=== PATIENT | female | born 1985 | race Caucasian/White ===

== ENCOUNTER 2024-05-27 17:34 | Inpatient (IN) | payer SELFPAY ==
[2024-05-27 17:42] VITALS: BP 202/106; PULSE 78; RESP 17; TEMP 36.7; O2SAT 95; BMI 34.4
[2024-05-27 18:07] LABS: Basophils # 0.1 10^3/uL (0.0-0.1); Basophils % 0.5 %; Eosinophils # 0.2 10^3/uL (0.0-0.8); Eosinophils % 1.1 %; Hematocrit 44.3 % (36-47); Mean Corpuscular HGB Conc 33.4 g/dL (30-55); Mean Corpuscular Hemoglobin 31.7 pg (27-33); Mean Corpuscular Volume 94.9 fl (85-98); Mean Platelet Volume 10.3 fL (7.4-10.4); Monocytes # 0.7 10^3/uL (0.2-0.9); Monocytes % 4.9 %; Neutrophils # 10.78 10^3/uL (1.8-7.7); Neutrophils % 72.9 %; Nucleated Red Blood Cells % 0 %; Platelet Count 317 10^3/cmm (157-399); Red Blood Count 4.67 10^6/uL (3.85-5.65); Red Cell Distribution Width 14.1 % (12.1-15.1)
[2024-05-27] MEDS: orphenadrine 30 mg/mL Inj 2 mL 60 MG IVP (18:09)
[2024-05-27] MEDS: HYDROmorphone 0.5 MG/0.5 ML INJ IVP (18:09)
[2024-05-27 18:18] LABS: INR 0.93 (0.8-1.2)
[2024-05-27 18:19] LABS: Partial Thromboplastin Time 30.8 SECONDS (23.9-36.7)
[2024-05-27 18:21] LABS: HCG, Serum Qual Negative (Negative)
[2024-05-27 18:23] LABS: Lactic Sepsis W/Reflex 1.6 mmol/L (0.5-2.2)
[2024-05-27 18:29] LABS: Alanine Aminotransferase 14 U/L (0-33); Alkaline Phosphatase 94 U/L (35-105); Anion Gap 20.3 (5-19); Aspartate Amino Transferase 26 U/L (0-32); Blood Urea Nitrogen 12 mg/dL (6-20); Carbon Dioxide 22 mmol/L (22-29); Chloride 101 mmol/L (98-107); Globulin 3.5 g/dL (1.3-4.6); Glucose 130 mg/dL (65-115); Osmolality Calculated 290 mOsm/kg (285-295); Potassium 4.3 mmol/L (3.5-5.1); Sodium 139 mmol/L (136-145); Total Bilirubin 0.6 mg/dL (0.15-1.2); Total Protein 8.5 g/dL (6.6-8.7)
[2024-05-27 18:30] LABS: Creatine Phosphokinase 501 U/L (26-192)
[2024-05-27 19:12] LABS: Thyroid Stimulating Hormone 63.45 uIU/mL (0.27-4.20)
[2024-05-27 19:47] VITALS: BP 152/90; PULSE 59; RESP 16; O2SAT 97
[2024-05-27] MEDS: midazolam 1 mg/mL INJ 2 mL 2 MG IVP (19:48)
--- NOTE | 2024-05-27 19:53 | PC.NURSE ---
PROVIDER MADE AWARE OF HR OF 60 BEFORE VERSED ADMIN, PROVIDER GAVE VERBAL ORDER TO GIVE MEDICATION.
--- NOTE | 2024-05-27 20:38 | ED_ITS ---
Documented by User: Ranulfo Oneal MD 05/27/24 23:01 HPI - General Adult 2 General: Chief complaint: General Medical Stated complaint: pain; MS Time Seen by Provider: 05/27/24 17:40 Source: patient and EMS Mode of arrival: EMS Limitations: no limitations History of Present Illness: 38-year-old female comes in complaining of pain and spasticity all over. Has a history of MS has been off her meds since January. Patient was not taken off of them just has run out. She is reporting moved and is no longer near her previous neurologist. Has not reestablished with neurology. Patient does have extensive extensive amounts of track turner on bilateral arms. Attempted to ask about this and patient just referred to them as scars. Patient reports that he cramping is all over she has had this happen before but never to this severity. Related Data Allergies Allergy/AdvReac Type Severity Reaction Status Date / Time No Known Allergies Allergy Verified 05/28/24 01:10 Review of Systems 2 General: Reports: 10 or more systems reviewed and unremarkable except in HPI and below PFSH ED 2 PFS: Medical History (Updated 05/28/24 @ 02:12 by Vadim Cooper DO) Hypothyroidism Opiate abuse, episodic Methamphetamine abuse in remission Multiple sclerosis Physical Exam 2 Narrative: EXAM NARRATIVE: Patient appears to be in moderate distress secondary to pain and is having cramping all of her extremities with tightness in the muscles of the legs and arms that is palpable and tender. Const: COMMON NORMALS: average body habitus, patient oriented x3, healthy appearing, alert and well nourished GENERAL APPEARANCE: well developed HENMT: COMMON NORMALS: normocephalic, atraumatic, external ears normal and moist oral mucous membranes HEAD & SCALP: normocephalic and atraumatic E XTERNAL EAR: Yes external ears normal Eye: COMMON NORMALS: Equal, round and reactive pupils present, EOMs intact bilaterally and conjunctivae normal CONJUNCTIVA: Yes conjunctivae normal P UPIL: Yes Equal, round and reactive pupils present Neck/C-Spine: COMMON NORMALS: full ROM, no lymphadenopathy and supple Chest: CHEST: Yes Symmetrical chest wall rise and No Surgical scars present (Chest) Resp: COMMON NORMALS: normal respiratory effort, No retractions, No use of accessory muscles and clear to auscultation bilaterally AUSCULTATION: clear to auscultation bilaterally Cardio: COMMON NORMALS: regular rate, regular rhythm, S1 normal heart sound present, S2 normal heart sound present, No gallops present (Cardio), No clicks present (Cardio), No murmurs present (Cardio) and No rub (Cardio) RATE: r egular rate RHYTHM: regular rhythm HEART SOUNDS: S1 normal heart sound present, S2 normal heart sound present and no murmurs PERIPHERAL PULSES: o ther (Radial pulses 2+ and symmetric) GI: COMMON NORMALS: Soft to palpation, non-tender and no masses INSPECTION: No abdominal distension PALPATION: Yes Soft to palpation, No Guarding due to palpation present (GI) and No Rebound tenderness present : COMMON NORMALS: Yes no CVA tenderness BLADDER/KIDNEY EXAM: Yes no CVA tenderness Back/Pelvis: COMMON NORMALS: no CVA tenderness Extremity: COMMON NORMALS: capillary refill normal and no clubbing, cyanosis or edema Neuro: COMMON NORMALS: patient oriented x3 SENSORIUM/ORIENTATION: Yes alert Skin: COMMON NORMALS: no rashes or lesions noted, no wounds, turgor normal and no jaundice GENERAL SKIN EXAM: no rashes or lesions noted and turgor normal Course 2 Vital Signs: Vital signs: Vital Signs Temperature 98.0 F 05/27/24 17:42 Pulse Rate 55 L 05/28/24 01:18 Respiratory Rate 16 05/28/24 01:18 Blood Pressure 149/98 05/28/24 01:18 Pulse Oximetry 94 05/28/24 01:18 Oxygen Delivery Me thod Room Air 05/28/24 00:37 MDM - General Adult Medical Decision Making Patient barely having an MS flare with all over muscle cramps. Now resolved muscle soreness. She has a CPK of 501. A TSH of 63 she reports she has not had any of her MS medications since January secondary to moving. Patient has not established with a local neurologist. Have received some control of pain and spasms with Versed and Dilaudid but patient still has visible fasciculations happening. Due to shift change while paging out for outside hospital transfer. Will handoff to Dr. Cooper. Medical Records I reviewed the patient's medical records. Lab Data I reviewed the patient's lab results. 05/27/24 18:01 05/27/24 18:01 Laboratory Results WBC 14.80 10^3/uL (3.29-11.43) H 05/27/24 18: RBC 4.67 10^6/uL (3.85-5.65) 05/27/24 18: Hgb 14.80 g/dL (11.27-16.99) 05/27/24 18: Hct 44.3 % (36-47) 05/27/24 18: MCV 94.9 fl (85-98) 05/27/24 18: MCH 31.7 pg (27-33) 05/27/24 18: MCHC 33.4 g/dL (30-55) 05/27/24 18: RDW 14.1 % (12.1-15.1) 05/27/24: Plt Count 317 10^3/cmm (157-399) 05/27/24 18: MPV 10.3 fL (7.4-10.4) 05/27/24 18: Neut % (Auto) 72.9 % 05/27/24 18: Lymph % (Auto) 20.0 % 05/27/24 18: [place] % (Auto) 4.9 % 05/27/24 18: Eos % (Auto) 1.1 % 05/27/24 18: Baso % (Auto) 0.5 % 05/27/24 18: Neut # (Auto) 10.78 10^3/uL (1.8-7.7) H 05/27/24 18: Lymph # (Auto) 3.0 10^3/uL (0.8-4.8) 05/27/24 18: [place] # (Auto) 0.7 10^3/uL (0.2-0.9) 05/27/24 18: Eos # (Auto) 0.2 10^3/uL (0.0-0.8) 05/27/24 18: Baso # (Auto) 0.1 10^3/uL (0.0-0.1) 05/27/24 18: Nucleated RBC % (auto) 0 % 05/27/24 18: Nucleated RBCs # 0.0 /100WBC 05/27/24 18: PT 13.20 SECONDS (12.1-14.9) 05/27/24 18: INR 0.93 (0.8-1.2) 05/27/24 18: APTT 30.8 SECONDS (23.9-36.7) 05/27/24 18: Sodium 139 mmol/L (136-145) 05/27/24 18: Potassium 4.3 mmol/L (3.5-5.1) 05/27/24 18: Chloride 101 mmol/L (98-107) 05/27/24 18: Carbon Dioxide 22 mmol/L (22-29) 05/27/24 18: Anion Gap 20.3 (5-19) H 05/27/24 18: BUN 12 mg/dL (6-20) 05/27/24 18: Creatinine 1.2 mg/dL (0.5-0.9) H 05/27/24 18: GFR Calculation 50.0 mL/min (90-130) L 05/27/24: Glucose 130 mg/dL (65-115) H 05/27/24 18: Calculated Osmolality 290 mOsm/kg (285-295) 05/27/24 18: Lactic Acid 1.6 mmol/L (0.5-2.2) 05/27/24 18: Calcium 10.0 mg/dL (8.5-10.5) 05/27/24 18: Total Bilirubin 0.6 mg/dL (0.15-1.2) 05/27/24 18: AST 26 U/L (0-32) 05/27/24 18: ALT 14 U/L (0-33) 05/27/24 18: Alkaline Phosphatase 94 U/L (35-105) 05/27/24 18: Creatine Kinase 501 U/L (26-192) H* 05/27/24 18: Total Protein 8.5 g/dL (6.6-8.7) 05/27/24 18: Albumin 5.0 g/dL (3.5-5.2) 05/27/24 18: Globulin 3.5 g/dL (1.3-4.6) 05/27/24 18: TSH 63.45 uIU/mL (0.27-4.20) H 05/27/24 18:01 HCG, Qual Negative (Negative) 05/27/24 21:13 Urine Color Yellow (Yellow) 05/27/24 21:13 Urine Appearance Slightly cloudy (CLEAR) 05/27/24 21:13 Urine pH 5 (5-7) 05/27/24 21:13 Ur Specific [place] 1.030 (1.005-1.030) 05/27/24 21:13 Urine Protein 1+ (Negative) A 05/27/24 21:13 Urine Glucose (UA) Norm (Normal) 05/27/24 21:13 Urine Ketones 1+ (Negative) H 05/27/24 21:13 Urine Blood 3+ (Negative) A 05/27/24 21: Urine Nitrate Positive (Negative) A 05/27/24 21: Urine Bilirubin 1+ (Negative) H 05/27/24 21:13 Urine Urobilinogen Norm mg/dL (Negative) 05/27/24 21:13 Ur Leukocyte Esterase Negative (Negative) 05/27/24 21:13 Urine RBC 3-5 /hpf (0-2) 05/27/24 21:13 Urine WBC 6-10 /hpf (0-5) 05/27/24 21:13 Ur Squamous Epith Cells 6-10 /hpf (0-5) 05/27/24 21:13 Amorphous Sediment Not Reportable 05/27/24 21:13 Urine Bacteria 2+ /hpf (NONE) H 05/27/24 21:13 Hyaline Casts 39.70 /lpf 05/27/24 21:13 Urine Opiates Screen Positive ng/mL (Negative) H 05/27/24 21:13 Ur Barbiturates Screen Negative ng/mL (Negative) 05/27/24 21:13 Ur Phencyclidine Scrn Negative ng/mL (Negative) 05/27/24 21:13 Ur Amphetamines Screen Negative ng/mL (Negative) 05/27/24 21:13 U Benzodiazepines Scrn Negative ng/mL (Negative) 05/27/24 21:13 Urine Cocaine Screen Negative ng/mL (Negative) 05/27/24 21:13 U Marijuana (THC) Screen Positive ng/mL (Negative) H 05/27/24 21:13 No radiology studies performed this visit Discharge Plan Discharge Patient Disposition: Admitted As Inpatient Admit Provider: Kenneth Olson Clinical Impression: Multiple sclerosis, Myositis Condition: Stable Coding Level of Care Code ED Retail Advertising Sales Manager for Chg Fwd Documented by User: Vadim Cooper DO 05/28/24 02:12 HPI - General Adult 2 General: Chief complaint: General Medical Stated complaint: pain; MS Time Seen by Provider: 05/27/24 17:40 Related Data Allergies Allergy/AdvReac Type Severity Reaction Status Date / Time No Known Allergies Allergy Verified 05/28/24 01:10 [facility] ED 2 PFSH: Medical History (Updated 05/28/24 @ 02:12 by Vadim Cooper DO) Hypothyroidism Opiate abuse, episodic Methamphetamine abuse in remission Multiple sclerosis Course 2 Vital Signs: Vital signs: Vital Signs Temperature 98.0 F 05/27/24 17:42 Pulse Rate 55 L 05/28/24 01:18 Respiratory Rate 16 05/28/24 01:18 Blood Pressure 149/98 05/28/24 01:18 Pulse Oximetry 94 05/28/24 01:18 Oxygen Delivery Me thod Room Air 05/28/24 00:37 MDM - General Adult Medical Decision Making Patient having an MS flare with all over muscle cramps. Now resolved muscle soreness. She has a CPK of 501. A TSH of 63 she reports she has not had any of her MS medications since January secondary to moving. Patient has not established with a local neurologist. Have received some control of pain and spasms with Versed and Dilaudid but patient still has visible fasciculations happening. Due to shift change while paging out for neurology consult. Will handoff to Dr. Cooper. Accepted patient at shift change from previous ER physician. I spoke with Dr. Leyva, neurology at [facility] in [facility]. His recommendations are pulsed dose of Solu-Medrol, 1 g daily for 3 days. MRI of brain and cervical, thoracic, and lumbar spine with and without contrast on Wednesday if possible. PT OT consult. Sliding scale insulin to control sugar if needed, and Protonix while on steroids. Spoke with hospitalist, who agrees to admission. Lab Data 05/27/24 18:01 05/27/24 18:01 Laboratory Results WBC 14.80 10^3/uL (3.29-11.43) H 05/27/24 18: RBC 4.67 10^6/uL (3.85-5.65) 05/27/24 18: Hgb 14.80 g/dL (11.27-16.99) 05/27/24 18: Hct 44.3 % (36-47) 05/27/24 18: MCV 94.9 fl (85-98) 05/27/24 18: MCH 31.7 pg (27-33) 05/27/24 18: MCHC 33.4 g/dL (30-55) 05/27/24 18: RDW 14.1 % (12.1-15.1) 05/27/24 18: Plt Count 317 10^3/cmm (157-399) 05/27/24 18: MPV 10.3 fL (7.4-10.4) 05/27/24 18: Neut % (Auto) 72.9 % 05/27/24 18: Lymph % (Auto) 20.0 % 05/27/24 18: [place] % (Auto) 4.9 % 05/27/24 18: Eos % (Auto) 1.1 % 05/27/24 18: Baso % (Auto) 0.5 % 05/27/24 18: Neut # (Auto) 10.78 10^3/uL (1.8-7.7) H 05/27/24 18: Lymph # (Auto) 3.0 10^3/uL (0.8-4.8) 05/27/24 18: [place] # (Auto) 0.7 10^3/uL (0.2-0.9) 05/27/24 18: Eos # (Auto) 0.2 10^3/uL (0.0-0.8) 05/27/24 18: Baso # (Auto) 0.1 10^3/uL (0.0-0.1) 05/27/24 18: Nucleated RBC % (auto) 0 % 05/27/24 18: Nucleated RBCs # 0.0 /100WBC 05/27/24 18: PT 13.20 SECONDS (12.1-14.9) 05/27/24 18: INR 0.93 (0.8-1.2) 05/27/24 18: APTT 30.8 SECONDS (23.9-36.7) 05/27/24 18: Sodium 139 mmol/L (136-145) 05/27/24 18: Potassium 4.3 mmol/L (3.5-5.1) 05/27/24 18: Chloride 101 mmol/L (98-107) 05/27/24 18: Carbon Dioxide 22 mmol/L (22-29) 05/27/24 18: Anion Gap 20.3 (5-19) H 05/27/24 18: BUN 12 mg/dL (6-20) 05/27/24 18: Creatinine 1.2 mg/dL (0.5-0.9) H 05/27/24 18: GFR Calculation 50.0 mL/min (90-130) L 05/27/24 18: Glucose 130 mg/dL (65-115) H 05/27/24 18: Calculated Osmolality 290 mOsm/kg (285-295) 05/27/24 18: Lactic Acid 1.6 mmol/L (0.5-2.2) 05/27/24 18: Calcium 10.0 mg/dL (8.5-10.5) 05/27/24 18: Total Bilirubin 0.6 mg/dL (0.15-1.2) 05/27/24 18: AST 26 U/L (0-32) 05/27/24 18: ALT 14 U/L (0-33) 05/27/24 18: Alkaline Phosphatase 94 U/L (35-105) 05/27/24 18: Creatine Kinase 501 U/L (26-192) H* 05/27/24 18: Total Protein 8.5 g/dL (6.6-8.7) 05/27/24 18: Albumin 5.0 g/dL (3.5-5.2) 05/27/24 18: Globulin 3.5 g/dL (1.3-4.6) 05/27/24 18:01 TSH 63.45 uIU/mL (0.27-4.20) H 05/27/24 18:01 HCG, Qual Negative (Negative) 05/27/24 21:13 Urine Color Yellow (Yellow) 05/27/24 21:13 Urine Appearance Slightly cloudy (CLEAR) 05/27/24 21:13 Urine pH 5 (5-7) 05/27/24 21:13 Ur Specific [place] 1.030 (1.005-1.030) 05/27/24 21:13 Urine Protein 1+ (Negative) A 05/27/24 21:13 Urine Glucose (UA) Norm (Normal) 05/27/24 21:13 Urine Ketones 1+ (Negative) H 05/27/24 21: Urine Blood 3+ (Negative) A 05/27/24 21: Urine Nitrate Positive (Negative) A 05/27/24 21: Urine Bilirubin 1+ (Negative) H 05/27/24 21:13 Urine Urobilinogen Norm mg/dL (Negative) 05/27/24 21:13 Ur Leukocyte Esterase Negative (Negative) 05/27/24 21:13 Urine RBC 3-5 /hpf (0-2) 05/27/24 21:13 Urine WBC 6-10 /hpf (0-5) 05/27/24 21:13 Ur Squamous Epith Cells 6-10 /hpf (0-5) 05/27/24 21:13 Amorphous Sediment Not Reportable 05/27/24 21:13 Urine Bacteria 2+ /hpf (NONE) H 05/27/24 21:13 Hyaline Casts 39.70 /lpf 05/27/24 21:13 Urine Opiates Screen Positive ng/mL (Negative) H 05/27/24 21:13 Ur Barbiturates Screen Negative ng/mL (Negative) 05/27/24 21:13 Ur Phencyclidine Scrn Negative ng/mL (Negative) 05/27/24 21:13 Ur Amphetamines Screen Negative ng/mL (Negative) 05/27/24 21:13 U Benzodiazepines Scrn Negative ng/mL (Negative) 05/27/24 21:13 Urine Cocaine Screen Negative ng/mL (Negative) 05/27/24 21:13 U Marijuana (THC) Screen Positive ng/mL (Negative) H 05/27/24 21:13 Discharge Plan Discharge Patient Disposition: Admitted As Inpatient Admit Provider: Kenneth Olson Clinical Impression: Multiple sclerosis, Myositis Condition: Stable Coding Level of Care Code ED Retail Advertising Sales Manager for Saul Ward
[2024-05-27 20:52] VITALS: BP 134/74; PULSE 52; RESP 16; O2SAT 93
[2024-05-27] MEDS: sodium chloride 0.9% 1,000 ML 999 ML IV (20:53)
[2024-05-27 21:19] LABS: HCG Qualitative Urine. Negative (Negative)
[2024-05-27 21:23] LABS: Bacteria Urine 2+ /hpf; Universal Test for UA Present (0)
[2024-05-27 21:28] LABS: Amphetamines Screen Urine Negative (Negative); Barbiturates Screen Urine Negative (Negative); Benzodiazepines Screen Urine Negative (Negative); Cocaine Screen Urine Negative (Negative); Opiate Screen Urine Positive (Negative); PCP Screen Urine Negative (Negative); THC Screen Urine Positive (Negative)
[2024-05-27 21:33] LABS: Add Urine Microscopic? YES; Blood Urine 3+ (Negative); Glucose Urine UA Norm (Normal); Ketones Urine 1+ (Negative); Nitrate Urine Positive (Negative); Protein Urine 1+ (Negative); Urine Appearance Slightly Cloudy (CLEAR); Urine Color Yellow (Yellow); pH Urine 5 (5-7)
[2024-05-27 21:34] LABS: Add Urine Culture? Yes; Bilirubin Urine 1+ (Negative); Leukocyte Esterase Urine Negative (Negative); Urobilinogen Urine Norm (Negative)
[2024-05-27 21:40] VITALS: BP 166/91; PULSE 47; RESP 16; O2SAT 93
[2024-05-27 23:08] VITALS: BP 146/96; PULSE 43; RESP 16; O2SAT 95
[2024-05-28] VITALS (9 sets, daily range): BP systolic 126–160; BP diastolic 73–98; PULSE 40–60; RESP 15–17; TEMP 36.4–37; O2SAT 91–95; BMI 40.1
--- NOTE | 2024-05-28 01:26 | P.HP_ITS ---
Providers/Chief Complaint 2 Admitting Physician: Kenneth Olson MD Primary Care Provider: none Chief Complaint: pain; MS History of Present Illness Leda Jordan is a 38 year old female comes in with self-reported history of MS diagnosed in [place]. She had been living in [place] and then [facility] but moved back to [place] because this is where she is from and she has a daughter that lives here. She is accompanied by her Bernardo. Patient states she has been out of her MS meds for 8 months. She had been on [employer] insurance but then after lost her job with multiple breast mass surgeries 2022 and gallbladder surgery February 2023 she was put on Medicaid insurance which that initial neurologist would not take. The second neurologist petey 6 vials of blood and also had MRI scheduled but patient left before that. Patient reports her medications were gabapentin baclofen and Requip. I was told by ER physicians that she had MS but these are not MS defining medications. The patient tells me she had a spinal lesion and a lesion in her brain on previous MRI thought to be MS but the second neurologist was not 100% convinced and wanted to have this repeated. Dr. Oneal initially saw the patient. Dr. Cooper spoke with neurologist it [place] and they discussed putting her on high-dose Solu-Medrol 1000 mg daily for 3 days which is what the patient has been admitted for Patient also had thyroid ablation 2015 and has been on high dose levothyroxine 300 mcg daily but ran out 3 months ago she has had some constipation but also diarrhea Patient does not report any specific Biologics or immune modulating treatments. The meds she reports are just baclofen gabapentin and Requip which are really adjunct treatments for MS but not specific to MS. Additionally patient denies ever having sepsis or endocarditis. She admits to taking opiates orally and smoking opiates as well as meth but quit both of those last year after her move to [place]. She denies ever using IV drugs. 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 Musculoskeletal she has had spasm and pain as well as a burning sensation in her skin she attributes this to the MS. Medications/Allergies Allergies Allergy/AdvReac Type Severity Reaction Status Date / Time No Known Allergies Allergy Verified 05/28/24 01:10 PFSH Acute 2 PFSH: Medical History (Updated 05/28/24 @ 01:37 by Kenneth Olson MD) Hypothyroidism Opiate abuse, episodic Methamphetamine abuse in remission Multiple sclerosis Female Reproductive History: Other female reproductive history: 2 children ages 19 and 22 and 1 grandchi ld patient has had LAUREN USO Vitals/I&O/Wt Last Vital Signs Temp 98.0 F 05/27/24 17:42 Pulse 55 L 05/28/24 01:18 Resp 16 05/28/24 01:18 BP 149/98 05/28/24 01:18 Pulse Ox 94 05/28/24 01:18 O2 Del Method Room Air 05/28/24 00:37 05/27/24 05/27/24 05/28/24 14:59 22:59 06:59 Intake Total 1000 / 1000 Balance 1000 / 1000 Weight last 48 hrs Weight 108.862 kg Physical Exam 2 Narrative: General well-developed well-nourished obese female in no acute cardiopulmonary stress She has dreadlocks but hygiene is preserved no body odor Skin she has multiple excoriate did scars but these do not appear to be active excoriations except for a couple of them. Most of them are just hyperpigmented and 50 history that she is given. I do not see track turner as reported by Dr. Oneal. I checked the antecubitals and I do not see any puncture sites CV regular rate and rhythm Lungs clear to auscultation bilaterally Abdomen positive bowel sounds soft nontender Calves no tenderness pretibial edema Musculoskeletal patient was antalgic and slow to extend her arms she states that the muscles feel tight and painful all over Data 05/27/24 18:01 05/27/24 18:01 A&P Assessment and plan (1) Multiple sclerosis: Patient has been given 1000 mg of Solu-Medrol in the emergency department. I am reluctant to continue that at this time as I do not have a firm diagnosis of MS based on records or certain treatment with MS medications. I will start the patient back on gabapentin 300 mg 3 times daily plus baclofen 10 mg 4 times a day. She is already received 1 dose Solu-Medrol and will monitor her response Will order MRI of the brain (2) Hypothyroidism: Start back levothyroxine at 300 mcg daily. Notably here she is bradycardic she has also had weight gain and constipation (3) Myositis: CPK was 500. Will recheck in 1 to 2 days PDMP PDMP Reviewed: Not Reviewed Attestations 2 Medical Necessity Statement*: Patient is admitted to hospital for treatment with levothyroxine as well as monitoring her bradycardia and response to the Solu-Medrol Coding Level of Care Code 08813 Diagnoses Multiple sclerosis G35 Hypothyroidism E03.9 Myositis M60.9 Time Spent (min) 75
[2024-05-28] MEDS: baclofen 10 mg Tablet PO ×5 (01:43→20:11)
[2024-05-28] MEDS: gabapentin 300 mg Capsule PO ×4 (01:43→20:11)
[2024-05-28] MEDS: enoxaparin 40 mg/0.4 mL Syringe SUBCUT (01:43)
[2024-05-28] MEDS: methylPREDNISolone sod succ 1,000 MG in sodium chloride 0.9% 250 ML 258 MG IV (01:55)
[2024-05-28] MEDS: methylPREDNISolone sod succ 125 mg/2 mL INJ 1000 MG (01:56)
[2024-05-28] MEDS: HYDROcodone-acetaminophen 5-325 mg Tablet 1 TAB PO ×3 (01:58→21:21)
[2024-05-28] MEDS: levothyroxine 75 mcg Tablet 150 MCG PO (01:58)
[2024-05-28] MEDS: nicotine 21 mg Patch 1 PATCH TRANSDERMA ×2 (02:40→20:11)
[2024-05-28] MEDS: docusate sodium 100 mg Capsule PO ×2 (08:46→17:46)
--- NOTE | 2024-05-28 13:33 | PM.MISC ---
Miscellaneous Note Note: Patient seen this morning. She states that she has had several episodes of 1 leg numbness, bilateral upper extremity numbness, and once bilateral lower extremity paralysis weakness after cholecystectomy few years ago. She used to see neurology in [place] however due to insurance had to switch her neurologist. Second neurologist ordered an extensive workup however patient was unable to follow-up with them. She saw Dr.Kartheek Collins at [facility]. Will be requesting records. She states he moved to [place] and do not have a doctor yet. Would like to get set up with a PCP and neurology here. She has been told that she may have had MS however MRI did not show evidence of it. Symptoms and presentations did present like MS in the past. She states her neurologist will still investigating however second neurologist stated that maybe something else was going on and workup was ordered. Patient states she had a second MRI done with the second neurologist she saw however was unable to follow-up for results. She states that she sometimes has contractures of hands and pain to where she cannot even open a can of soda. 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 Used to be able to lift 100 pound weight easily however now at times cannot even open up a can of soda. States that she does have a history of fibromyalgia in the family however has never been diagnosed with it. Plan Patient did receive Solu-Medrol 1000 mg IV x 1 in ER. Will hold off on further doses till neurology consultation. Consult neurology in AM. Await MRI today. Continue baclofen gabapentin at this time. Unsure if patient has fibromyalgia versus true MS. Will need further investigation. Will request medical records as she has had extensive workup completed in the past. Patient states she has never had a lumbar puncture before. Will consider LP in a.m for MS workup. Will discuss with neurology before ordering further testing. Continue to monitor at this time.
--- NOTE | 2024-05-28 13:37 | MRR_ITS ---
PROCEDURE INFORMATION: Exam: MR Head Without Contrast Exam date and time: 05/28/2024 2:34 PM Age: 38 years old Clinical indication: Weakness, extremity; Bilateral; Additional info: B/l upper extremity weakness, ms? TECHNIQUE: Imaging protocol: Magnetic resonance imaging of the head without contrast. COMPARISON: No relevant prior studies available. FINDINGS: Brain: Normal. No acute infarct. No hemorrhage. No significant white matter disease. No edema. Cerebral ventricles: Normal. No ventriculomegaly. Bones: Unremarkable. Paranasal sinuses: Normal as visualized. No acute sinusitis. Mastoid air cells: Normal as visualized. No mastoid effusion. Orbital cavities: Unremarkable. Soft tissues: Unremarkable. MR/MR head wo con* [id number] IMPRESSION: No acute intracranial abnormality.
[2024-05-29] MEDS: enoxaparin 40 mg/0.4 mL Syringe SUBCUT (00:34)
[2024-05-29] MEDS: acetaminophen 325 mg Tablet 650 MG PO (00:41)
[2024-05-29] MEDS: HYDROcodone-acetaminophen 5-325 mg Tablet 1 TAB PO ×2 (01:37→10:55)
[2024-05-29 04:00] VITALS: BP 130/78; PULSE 49; RESP 18; TEMP 36.8; O2SAT 90
[2024-05-29] MEDS: levothyroxine 75 mcg Tablet 150 MCG PO (05:21)
[2024-05-29 05:25] LABS: Basophils # 0.1 10^3/uL (0.0-0.1); Basophils % 0.2 %; Hematocrit 40.2 % (36-47); Lymphocytes % 8.2 %; Mean Corpuscular HGB Conc 33.3 g/dL (30-55); Mean Corpuscular Hemoglobin 32.3 pg (27-33); Mean Corpuscular Volume 96.9 fl (85-98); Mean Platelet Volume 11.1 fL (7.4-10.4); Monocytes # 0.8 10^3/uL (0.2-0.9); Monocytes % 3.3 %; Neutrophils # 21.26 10^3/uL (1.8-7.7); Neutrophils % 87.5 %; Nucleated Red Blood Cells % 0 %; Platelet Count 277 10^3/cmm (157-399); Red Blood Count 4.15 10^6/uL (3.85-5.65); Red Cell Distribution Width 14.3 % (12.1-15.1); White Blood Count 24.29 10^3/uL (3.29-11.43)
[2024-05-29 05:40] LABS: Blood Urea Nitrogen 12 mg/dL (6-20); Calcium 8.9 mg/dL (8.5-10.5); Carbon Dioxide 22 mmol/L (22-29); Chloride 107 mmol/L (98-107); Glomerular Filtration Rate 69.7 mL/min (90-130); Glucose 117 mg/dL (65-115); Magnesium 2.3 mg/dL (1.7-2.3); Osmolality Calculated 293 mOsm/kg (285-295); Sodium 141 mmol/L (136-145)
[2024-05-29 07:52] VITALS: BP 119/73; PULSE 51; RESP 16; TEMP 36.4; O2SAT 94
[2024-05-29] MEDS: baclofen 10 mg Tablet PO ×2 (08:19→12:21)
[2024-05-29] MEDS: gabapentin 300 mg Capsule PO ×2 (08:19→15:20)
[2024-05-29] MEDS: docusate sodium 100 mg Capsule PO (08:19)
[2024-05-29 11:09] VITALS: BP 146/80; PULSE 86; RESP 17; TEMP 36.4; O2SAT 96
--- NOTE | 2024-05-29 11:10 | PC.CHAP ---
Pastoral Care Encounter/Spiritual Assessment Type of Contact [] Declined telehealth nurse visit [] Patient/Family/Request visit [] Outpatient visit [] Follow-up visit [] Physician referral [] Code/Alert [x] Routine visit [] Staff referral [] Actively dying [] Patient sleeping [x] Family support [] [] Out of room [] Palliative care [] [] Receiving care in room [] Pre-surgical visit [] Trauma [] Long length of stay [] ICU visit [] Other: Relational/Emotional Strength [] Patient feels connected with others/family/visitors/staff [] Distress [] Loneliness/isolation [] Abandonment Spirituality of Patient [x] Person of Gricelda [] Attends Lutheran of their Gricelda [x] Believes in Prayer [] Reads Bible or Cheondoism materials [] There are Spiritual issues to be addressed Extractor Operator Helper Interventions [x] Prayer [x] Active listening [] Non-anxious presence [] Spiritual/emotional support [] Crisis/trauma care [] Spiritual counseling [] Bereavement support [] Provided bereavement packet [x] Provided Bible/devotional materials [] Provided toy/stuffed animal, coloring book to patient or family member [] Provided Communion [] Anointing/[place] [] Salvation [x] Completed spiritual assessment [] Other: Impact on Illness or Injury [] Angry [] Fearful [] Anxious [] Often cries [] Exhaustion [] Unable to work [] Unable to attend holiness [] Unable to walk/stand [] Unable to read [] Unable to drive [] Unable to eat/drink [] Unable to sleep [] Unable to be with family [] Patient intubated [] Other: Summary Time spent with patient 5 min
[2024-05-29] MEDS: methylPREDNISolone sod succ 1,000 MG in sodium chloride 0.9% 250 ML 258 MG IV (11:14)
[2024-05-29 15:46] LABS: Free T4 Free Thyroxine 0.35 ng/dL (0.82-1.77); T3 Free 0.9 PG/ML (2.0-4.4)
[2024-05-29 15:59] VITALS: BP 131/77; PULSE 54; RESP 16; TEMP 36.3; O2SAT 94
[2024-05-29 16:40] VITALS: BP 131/77; PULSE 54; RESP 16; TEMP 36.3; O2SAT 94
--- NOTE | 2024-05-29 17:17 | P.DS_ITS ---
Discharge Providers Date of Admission: 05/28/24 00:11 Date of Discharge: May 29, 2024 Attending Provider at Admission: Kenneth Olson MD Attending Provider at Discharge: Jazmine Gauthier MD Consults: [facility] neurology Diagnoses at Discharge Discharge Diagnosis (1) Multiple sclerosis: Status: Acute (2) Hypothyroidism: Status: Acute (3) Myositis: Status: Acute Reason for Visit Reason for Visit: pain; MS Brief History: Leda Jordan is a 38 year old female comes in with self-reported history of MS diagnosed in [place]. She had been living in [place] and then [facility] but moved back to [place] because this is where she is from and she has a daughter that lives here. She states that they have was no consensus on the diagnosis of MS. She has seen 2 neurologists in the past. One of them did not believe she had MS as her MRI was normal. A second neurologist that she was most recently following with suspected MS in spite of her normal MRI. There is also suspicion for autoimmune process per her description. Requested records from Dr. Tank Haines's office at [facility] ) , however. To receive these documents. Patient additionally has a history of hyperthyroidism which required ablation following which patient developed hypothyroidism and has remained on levothyroxine supplementation. She reports to me that his TSH was close to 5000 a few months ago, she was placed on levothyroxine 300 mcg daily, dose increased from 150 mcg daily. The TSH was noted to be that high. She presented to the hospital on May 28, 2024 with chief complaints of extensive pain affecting all extremities. She states that she felt her arms and legs were twisting related to the pain. She denies any focal weakness upon a dmission. It appears ER physician discussed the case with [facility] neurology who recommended giving Solu-Medrol 1000 mg 3 doses in the emergency room. She received the first dose in the ER, however thereafter it was discontinued once her normal MRI was obtained and history less concerning for an MS flare. She was noted to have mild myositis with CPK of 500. TSH returned at 63.45 with low 3 3 and T4 at 0.9 and a 0.35 respectively. She was started on levothyroxine 75 mcg daily, this has been increased to 150 mcg at the time of discharge. Preferred to start her at a lower dose of 150 mcg rather than 300 mcg which she reported taking several months ago. I did call her pharmacy in [place] to confirm doses. While they were able to confirm doses of gabapentin, ropinirole and baclofen, they found no record of levothyroxine. Since patient self reports that TSH is coming down from 5000-63, prefer to use a lower dose of 150 mcg daily. Patient has not yet established with a primary care physician in [place]. Referral provided to [facility] primary care as outpatient. 1 month refills were provided for her current medications and meds to beds arranged. Additionally referral was given to see neurology as an outpatient. Since patient is overall clinically feeling much improved, states she is back to her baseline, MRI was without any acute abnormalities, she is being discharged today in stable to improved condition. Likely her symptoms of increased pain were related to abrupt cessation of her medications including gabapentin baclofen and ropinirole. These have been resumed at discharge. She remained hemodynamically stable during the course of her admission. Physical Exam Narrative: General: No acute distress, AO x3 HEENT: PERRLA, pupils bilaterally equal and reactive, pallors not present Chest: Normal vesicular breath sounds, no added sounds, equal good air entry bilaterally CVS: S1-S2 regular, no murmurs, no tachycardia, no gallops, no rubs Abdomen: Soft, nontender, no organomegaly, bowel sounds present Neuro: No focal deficits, no facial deformity, AO x3, power 5/5 in all limbs Discharge Data Studies Completed and Pending Completed Studies During Hospitalization Category Date Time Status MR head wo con* [id number] Routine MRI 05/28/24 13:37 Completed Pending at discharge Category Date Time Status Urine Culture Stat Lab 05/27/24 21:13 Results Radiology Impressions Head MRI 05/28/24 13:37 IMPRESSION: No acute intracranial abnormality. Laboratory Results WBC 24.29 10^3/uL (3.29-11.43) H 05/29/24 05:07 RBC 4.15 10^6/uL (3.85-5.65) 05/29/24 05:07 Hgb 13.40 g/dL (11.27-16.99) 05/29/24 05:07 Hct 40.2 % (36-47) 05/29/24 05:07 MCV 96.9 fl (85-98) 05/29/24 05:07 MCH 32.3 pg (27-33) 05/29/24 05:07 MCHC 33.3 g/dL (30-55) 05/29/24 05:07 RDW 14.3 % (12.1-15.1) 05/29/24 05:07 Plt Count 277 10^3/cmm (157-399) 05/29/24 05:07 MPV 11.1 fL (7.4-10.4) H 05/29/24 05:07 Neut % (Auto) 87.5 % 05/29/24 05:07 Lymph % (Auto) 8.2 % 05/29/24 05:07 [place] % (Auto) 3.3 % 05/29/24 05:07 Eos % (Auto) 0.0 % 05/29/24 05:07 Baso % (Auto) 0.2 % 05/29/24 05:07 Neut # (Auto) 21.26 10^3/uL (1.8-7.7) H 05/29/24 05:07 Lymph # (Auto) 2.0 10^3/uL (0.8-4.8) 05/29/24 05:07 [place] # (Auto) 0.8 10^3/uL (0.2-0.9) 05/29/24 05:07 Eos # (Auto) 0.0 10^3/uL (0.0-0.8) 05/29/24 05:07 Baso # (Auto) 0.1 10^3/uL (0.0-0.1) 05/29/24 05:07 Nucleated RBC % (auto) 0 % 05/29/24 05:07 Nucleated RBCs # 0.0 /100WBC 05/29/24 05:07 PT 13.20 SECONDS (12.1-14.9) 05/27/24 18:01 INR 0.93 (0.8-1.2) 05/27/24 18:01 APTT 30.8 SECONDS (23.9-36.7) 05/27/24 18:01 Sodium 141 mmol/L (136-145) 05/29/24 05:07 Potassium 4.0 mmol/L (3.5-5.1) 05/29/24 05:07 Chloride 107 mmol/L (98-107) 05/29/24 05:07 Carbon Dioxide 22 mmol/L (22-29) 05/29/24 05:07 Anion Gap 16.0 (5-19) 05/29/24 05:07 BUN 12 mg/dL (6-20) 05/29/24 05:07 Creatinine 0.9 mg/dL (0.5-0.9) 05/29/24 05:07 GFR Calculation 69.7 mL/min (90-130) L 05/29/24 05:07 Glucose 117 mg/dL (65-115) H 05/29/24 05:07 Calculated Osmolality 293 mOsm/kg (285-295) 05/29/24 05:07 Lactic Acid 1.6 mmol/L (0.5-2.2) 05/27/24 18:01 Calcium 8.9 mg/dL (8.5-10.5) 05/29/24 05:07 Magnesium 2.3 mg/dL (1.7-2.3) 05/29/24 05:07 Total Bilirubin 0.6 mg/dL (0.15-1.2) 05/27/24 18:01 AST 26 U/L (0-32) 05/27/24 18:01 ALT 14 U/L (0-33) 05/27/24 18:01 Alkaline Phosphatase 94 U/L (35-105) 05/27/24 18:01 Creatine Kinase 501 U/L (26-192) H* 05/27/24 18:01 Total Protein 8.5 g/dL (6.6-8.7) 05/27/24 18:01 Albumin 5.0 g/dL (3.5-5.2) 05/27/24 18:01 Globulin 3.5 g/dL (1.3-4.6) 05/27/24 18:01 TSH 63.45 uIU/mL (0.27-4.20) H 05/27/24 18:01 Free T4 0.35 ng/dL (0.82-1.77) L 05/29/24 00:50 Free T3 0.9 PG/ML (2.0-4.4) L 05/29/24 00:50 HCG, Qual Negative (Negative) 05/27/24 21:13 Urine Color Yellow (Yellow) 05/27/24 21:13 Urine Appearance Slightly cloudy (CLEAR) 05/27/24 21:13 Urine pH 5 (5-7) 05/27/24 21:13 Ur Specific [place] 1.030 (1.005-1.030) 05/27/24 21:13 Urine Protein 1+ (Negative) A 05/27/24 21:13 Urine Glucose (UA) Norm (Normal) 05/27/24 21:13 Urine Ketones 1+ (Negative) H 05/27/24 21:13 Urine Blood 3+ (Negative) A 05/27/24 21: Urine Nitrate Positive (Negative) A 05/27/24 21: Urine Bilirubin 1+ (Negative) H 05/27/24 21: Urine Urobilinogen Norm mg/dL (Negative) 05/27/24 21:13 Ur Leukocyte Esterase Negative (Negative) 05/27/24 21:13 Urine RBC 3-5 /hpf (0-2) 05/27/24 21:13 Urine WBC 6-10 /hpf (0-5) 05/27/24 21:13 Ur Squamous Epith Cells 6-10 /hpf (0-5) 05/27/24 21:13 Amorphous Sediment Not Reportable 05/27/24 21:13 Urine Bacteria 2+ /hpf (NONE) H 05/27/24 21:13 Hyaline Casts 39.70 /lpf 05/27/24 21:13 Urine Opiates Screen Positive ng/mL (Negative) H 05/27/24 21:13 Ur Barbiturates Screen Negative ng/mL (Negative) 05/27/24 21:13 Ur Phencyclidine Scrn Negative ng/mL (Negative) 05/27/24 21:13 Ur Amphetamines Screen Negative ng/mL (Negative) 05/27/24 21:13 U Benzodiazepines Scrn Negative ng/mL (Negative) 05/27/24 21:13 Urine Cocaine Screen Negative ng/mL (Negative) 05/27/24 21:13 U Marijuana (THC) Screen Positive ng/mL (Negative) H 05/27/24 21:13 Vitals Last Vital Signs Temp 97.3 F L 05/29/24 16:40 Pulse 54 L 05/29/24 16:40 Resp 16 05/29/24 16:40 BP 131/77 05/29/24 16:40 Pulse Ox 94 05/29/24 16:40 O2 Del Method Room Air 05/29/24 15:59 Discharge Plan Discharge Patient Disposition: Home Condition: Stable Prescriptions: New levothyroxine 75 mcg Tablet 150 mcg PO DAILY 30 Days Qty: 60 0RF baclofen 10 mg Tablet 10 mg PO TID PRN (Reason: spasms) 30 Days Qty: 90 0RF gabapentin 300 mg Capsule 600 mg PO BEDTIME 30 Days Qty: 60 0RF ropinirole 1 mg tablet 0.5 mg PO TID 30 Days Qty: 45 0RF No Action No Known Home Medications Discharge Orders: Discharge Order (Routine); Ordered 05/29/24 Ordered By: Jazmine Gauthier Referrals: [facility] [Other] ([facility] [address] , [place] [address] ) Liza Strauss MD [Physician] - 09/14/24 1:00 pm (suspected MS ) Jennifer White DO [Physician] - 06/08/24 8:00 am (new patient, establish with PCP, recently moved into [facility] ) Discharge Diet: Usual diet Discharge Activity: Resume usual activity Patient Instructions: Levothyroxine (By mouth), Baclofen (By mouth), Gabapentin (By mouth), Ropinirole (By mouth), Multiple Sclerosis, Hypothyroidism (DC), Opioid Safety Discharge Attestations Time Spent in Discharge Care*: greater than 30 min Quality Metrics Clinical Quality Measures [ No reported AMI, CVA or VTE this stay] Coding Level of Care Code Acute Code for Chg Fwd Diagnoses Multiple sclerosis G35 Hypothyroidism E03.9 Myositis M60.9
== END 2024-05-29 16:42 | disposition home or self-care (01) | DRG 556 ==
LOC: ER 05-28 00:15 → MEDSURG 05-28 00:33
PROVIDERS: Emergency Medicine; Internal Medicine; Admitting Provider Internal Medicine; Emergency Provider Emergency Medicine; Visit Provider Student in an Organized Health Care Education/Training Program
DX: M60.9 Myositis, unspecified (principal); E03.9 Hypothyroidism, unspecified; T42.6X6A Underdosing of other antiepileptic and sedative-hypnotic drugs, initial encounter; T42.8X6A Underdosing of antiparkinsonism drugs and other central muscle-tone depressants, initial encounter; Z91.128 Patient's intentional underdosing of medication regimen for other reason
CPT/HCPCS: 36415; 70551; 80048; 80053; 80306; 81001; 81025; 82550; 83605; 83735; 84439; 84443; 84481; 84703; 85025; 85610; 85730; 87077; 87086; 87186; 96361; 96372; 96374; 96375; 99285; J1171; J1650; J2250; J2360; J2919; J7030; J7050; J9999